=== PATIENT | female | born 1950 | race Caucasian/White ===

== ENCOUNTER 2017-10-22 11:33 | Emergency (ER) | payer MEDICARE ==
[~2017-10-22] VITALS: Ht 162.6 cm; Wt 48.5 kg
[~2017-10-22 11:33] MED LIST: ALPR0.5T7 PO; ASCO500C49 PO; CHOL400C7 PO; METO-159 PO; PROBTAB12 PO; VITA200T2 PO
[2017-10-22 11:59] VITALS: BP 136/63
== END 2017-10-22 12:34 | disposition home or self-care (01) ==
LOC: ER 11:33
DX: H60.321 Hemorrhagic otitis externa, right ear (principal); I10 Essential (primary) hypertension; Z90.710 Acquired absence of both cervix and uterus